=== PATIENT | male | born 1980 | race Two or more races ===

== ENCOUNTER 2017-11-15 10:50 | Emergency (ER) | payer MEDICAID ==
[~2017-11-15] VITALS: Ht 188 cm; Wt 138.3 kg
[~2017-11-15 10:50] MED LIST: IBUPROFEN600 MG ORAL; MULTIVITAMINS1 EAC8 ORAL
[2017-11-15 11:15] VITALS: BP 157/90
[2017-11-15] MEDS ORDERED: Methocarbamol 750mg tab ORAL ONE (11:30)
[2017-11-15] MEDS ORDERED: Ketorolac 30mg Inj IM ONE (11:30)
[2017-11-15 12:01] LABS: APPEARANCE,URINE SLIGHTLY CLOUDY; BILIRUBIN, URINE NEGATIVE (NEGATIVE); GLUCOSE, URINE (UA) NEGATIVE (NEGATIVE); KETONES,URINE NEGATIVE (NEGATIVE); LEUKOCYTE ESTERASE ,URINE 3+ (NEGATIVE); NITRITE,URINE NEGATIVE (NEGATIVE); PH,URINE 5 (4.5-8.0); PROTEIN,URINE 2+ (NEGATIVE); UROBILINOGEN,URINE 1 MG/DL (0.0-1.0)
[2017-11-15 12:07] LABS: COLOR,URINE YELLOW
[2017-11-15] MEDS ORDERED: Norco 5mg/325mg tab ORAL ONE (12:45)
[2017-11-15] MEDS ORDERED: NORCO 5-325 TA1 EACH ORAL (12:51)
[2017-11-15] MEDS ORDERED: LIDODERM700 M1 TOPIC (12:51)
[2017-11-15] MEDS ORDERED: ROBAXIN-750750 MG PO (12:51)
[2017-11-15] MEDS ORDERED: IBUPROFEN600 MG ORAL (12:51)
[2017-11-15 13:10] VITALS: BP 157/90
[2017-11-15] MEDS ORDERED: CEPHALEXIN500 MG ORAL (13:11)
--- NOTE | 2017-11-15 13:31 | Emergency Room Report ---
History of Present Illness General Chief Complaint: Neck Pain Source: Patient Present Illness HPI 37-year-old male presents ED complaining of left-sided neck pain. Started 2 days ago when he woke up from sleep. Has gotten progressively worse. Feels very stiff on the left side of his neck. Pain is throbbing, 9 out of 10, nonradiating. Denies any headache. Denies any photophobia or blurry vision. Denies fevers or chills. No other aggravating relieving factors. Denies any other associated symptoms Allergies: Coded Allergies: No Known Allergies (Unverified , 11/15/15) Patient History Past Medical History: none Past Surgical History: none Pertinent Family History: none Immunizations: UTD Reviewed Nursing Documentation: PMH: Agreed; PSxH: Agreed Nursing Documentation-PMH Past Medical History: No Stated History Review of Systems All Other Systems: negative except mentioned in HPI Physical Exam Vital Signs Date Time Temp Pulse Resp B/P (MAP) Pulse Ox O2 Delivery O2 Flow Rate FiO2 11/15/17 10:58 99.0 75 18 157/90 96 Room Air 99.0 Sp02 EP Interpretation: reviewed, normal General Appearance: no apparent distress, alert, GCS 15, non-toxic Head: normocephalic Eyes: bilateral eye normal inspection, bilateral eye PERRL ENT: hearing grossly normal, normal pharynx, no angioedema, normal voice Neck: no meningismus, no bony tend, supple/symm/no masses, limited range of motion, tender lateral Respiratory: normal inspection Cardiovascular #1: normal inspection Gastrointestinal: normal inspection Rectal: deferred Genitourinary: no CVA tenderness Musculoskeletal: normal inspection Neurologic: alert, oriented x3, responsive, motor strength/tone normal, sensory intact, speech normal Psychiatric: normal inspection Skin: normal inspection Lymphatic: normal inspection Medical Decision Making Diagnostic Impression: Primary Impression: UTI (urinary tract infection) Qualified Codes: N39.0 - Urinary tract infection, site not specified Additional Impression: Cervical strain Qualified Codes: S16.1XXA - Strain of muscle, fascia and tendon at neck level , initial encounter ER Course Hospital Course 37 yo M presents with L sided neck pain. no trauma Differential diagnoses include: neck strain, shoulder strain, dislocation/ fracture Clinical course Patient placed on stretcher. After initial history and physical exam reveals middle-aged male in no acute distress. On exam there is no midline neck tenderness or shoulder tenderness. Full range of motion to the shoulder. There is pain over the left SCM. consistent with cervical strain patient also noted increased urinary symtpoms x 5 days. no dysuria. no flank or nausea/vomiting or fever. Patient given Toradol, [place], Robaxin, Lidoderm patch with pain slowly improving on reassessment UA shows evidence of UTI. We will also discharge on antibiotics. Patient safe for discharge with close outpatient follow-up Diagnosis - neck strain, UTI Stable and discharged to home with prescription for treatment motrin, Robaxin, norco, lidoderm patch, keflex. Followup with PMD. Return to ED if symptoms recur or worsen Labs Test 11/15/17 11:24 Urine Color Yellow Urine Appearance Slightly cloudy Urine pH 5 (4.5-8.0) Urine Specific Agency 1.015 (1.005-1.035) Urine Protein 2+ (NEGATIVE) Urine Glucose (UA) Negative (NEGATIVE) Urine Ketones Negative (NEGATIVE) Urine Blood 4+ (NEGATIVE) Urine Nitrite Negative (NEGATIVE) Urine Bilirubin Negative (NEGATIVE) Urine Urobilinogen 1 MG/DL (0.0-1.0) Urine Leukocyte Esterase 3+ (NEGATIVE) Urine RBC 5-10 /HPF (0 - 0) Urine WBC 60-80 /HPF (0 - 0) Urine Squamous Epithelial Cells Occasional /LPF Urine Bacteria Few /HPF (NONE) Last Vital Signs Date Time Temp Pulse Resp B/P (MAP) Pulse Ox O2 Delivery O2 Flow Rate FiO2 11/15/17 13:10 99.0 18 157/90 96 Room Air 210.2 11/15/17 10:58 75 Status: improved Disposition: HOME, SELF-CARE Condition: Stable Scripts Cephalexin* (KEFLEX*) 500 Mg Capsule 500 MG ORAL EVERY 6 HOURS for 7 Days, CAP Prov: Kt Mcbride MD 11/15/17 Methocarbamol* (ROBAXIN-750*) 750 Mg Tablet 750 MG PO TID, #21 TAB 0 Refills Prov: Kt Mcbride MD 11/15/17 Lidocaine (Lidoderm) 1 Each Adh..patch 1 PATCH TOPIC DAILY, #7 PATCH 0 Refills Patch(es) may remain in place for up to 12 hours in any 24-hour period. Prov: Kt Mcbride MD 11/15/17 Hydrocodone Bit/Acetaminophen 5-325* (NORCO 5-325*) 1 Each Tablet 1 TAB ORAL Q6H PRN for For Pain, #10 TAB 0 Refills Prov: Kt Mcbride MD 11/15/17 Ibuprofen* (MOTRIN*) 600 Mg Tablet 600 MG ORAL Q8H PRN for For Pain, #30 TAB 0 Refills Prov: Kt Mcbride MD 11/15/17 Departure Forms: Return to Work Return to Work Date: Nov 17, 2017 Work Restrictions: No Heavy Lifting Patient Instructions: Cervical Strain and Sprain With Rehab[facility] Kt Mcbride MD Nov 15, 2017 13:31
== END 2017-11-15 13:03 | disposition home or self-care (01) ==
LOC: EMR 11:21
DX: S16.1XXA Strain of muscle, fascia and tendon at neck level, initial encounter (principal); X58.XXXA Exposure to other specified factors, initial encounter; Y93.9 Activity, unspecified; Y92.9 Unspecified place or not applicable; N39.0 Urinary tract infection, site not specified
CPT/HCPCS: 81003; 87086; 87181; 96372; 99283; J1885